=== PATIENT | female | born 1940 | race Caucasian/White ===

== ENCOUNTER 2018-02-11 09:10 | Day surgery (SDC) | payer MEDICARE, OTHER ==
[~2018-02-11] VITALS: Ht 160 cm; Wt 88.5 kg
[2018-02-11 09:53] VITALS: BP 132/82
[2018-02-11] MEDS ORDERED: LACTATED RINGERS 1,000 ML IV SCH ×2 (09:59→10:25)
[2018-02-11] MEDS ORDERED: GABA600T2 PO (10:03)
[2018-02-11] MEDS ORDERED: AMIT50TA PO (10:03)
[2018-02-11] MEDS ORDERED: IRON45TA6 PO (10:03)
[2018-02-11] MEDS ORDERED: VIT500LI PO (10:03)
[2018-02-11] MEDS ORDERED: TRAM50TA2 PO (10:03)
[2018-02-11] MEDS ORDERED: UBID300C PEG (10:03)
[2018-02-11] MEDS ORDERED: MAGN300C PO (10:03)
[2018-02-11] MEDS ORDERED: CHOL2000 PO (10:03)
[2018-02-11] MEDS ORDERED: FURO20TA3 PO (10:03)
[2018-02-11] MEDS ORDERED: LEVO100V PO (10:03)
[2018-02-11] MEDS ORDERED: MULT-709 PO (10:03)
[2018-02-11] MEDS ORDERED: DILT120C75 PO (10:03)
[2018-02-11] MEDS ORDERED: GABAPENTIN 300 MG CAPSULE PO ONE (10:30)
[2018-02-11] MEDS ORDERED: ACETAMINOPHEN 500 MG TABLET PO ONE (10:30)
[2018-02-11] MEDS ORDERED: FENTANYL PF 100 MCG/2ML ONE ×2 (10:33→12:22)
[2018-02-11] MEDS ORDERED: ONDANSETRON 2MG/ML, 2ML ONE (10:48)
[2018-02-11] MEDS ORDERED: CEFAZOLIN 1,000 MG ONE (10:48)
[2018-02-11] MEDS ORDERED: DEXAMETHASONE 4 MG/ML, 1ML ONE (10:48)
[2018-02-11] MEDS ORDERED: PROPOFOL 10 MG/ML, 20ML ONE (10:48)
[2018-02-11 10:54] LABS: BASOPHILS # (AUTO) 0.04 x10^3/uL (0-0.1); BASOPHILS % (AUTO) 1 % (0-1); EOSINOPHILS % (AUTO) 1 % (1-7); LYMPHOCYTES # (AUTO) 1.17 x10^3/uL (1-3.4); LYMPHOCYTES % (AUTO) 15 % (22-44); MD NO; MEAN CORPUSCULAR HEMOGLOBIN 26.7 pg (27.0-34.8); MEAN CORPUSCULAR HGB CONC 32.5 g/dL (32.4-35.8); MEAN CORPUSCULAR VOLUME 82.3 fL (80-100); MONOCYTES # (AUTO) 0.68 x10^3/uL (0.2-0.8); MONOCYTES % (AUTO) 9 % (2-9); NEUTROPHILS # (AUTO) 6.06 x10^3/uL (1.8-6.8); NEUTROPHILS % (AUTO) 75 % (42-75); PLATELET COUNT 443 x10^3/uL (130-400); RED BLOOD COUNT 3.85 x10^6/uL (3.82-5.3); RED CELL DISTRIBUTION WIDTH 17.9 % (9.6-15.2)
[2018-02-11] MEDS ORDERED: MIDAZOLAM 1 MG/ML, 2ML IV PRN (11:00)
[2018-02-11] MEDS ORDERED: LABETALOL 5MG/ML, 20ML IV PRN (11:00)
[2018-02-11] MEDS ORDERED: OXYcodone 5 MG/5 ML ORAL.SOL UDC PO PRN (11:00)
[2018-02-11] MEDS ORDERED: PROMETHAZINE 25 MG/ML, 1ML IV PRN (11:00)
[2018-02-11] MEDS ORDERED: ONDANSETRON 2MG/ML, 2ML IV PRN (11:00)
[2018-02-11] MEDS ORDERED: HYDROmorphone 1 MG/ML, 1ML IV PRN (11:00)
[2018-02-11] MEDS ORDERED: ALBUTEROL/IPRATROPIUM 2.5MG/0.5MG, 3 ML NPPB PRN (11:00)
[2018-02-11] MEDS ORDERED: LIDOCAINE/PF 1%, 30ML ONE (11:04)
[2018-02-11] MEDS ORDERED: BUPIVACAINE/PF 0.5% ONE (11:04)
[2018-02-11 11:05] LABS: ALANINE AMINOTRANSFERASE 14 U/L (12-78); ALBUMIN 2.7 g/dL (3.4-5.0); ANION GAP 9 mmol/L (5-15); CALCIUM 8.8 mg/dL (8.5-10.1); CHLORIDE 103 mmol/L (98-107); CREATININE 0.98 mg/dL (0.55-1.02)
[2018-02-11 11:07] LABS: ALKALINE PHOSPHATASE 157 U/L (45-117); BILIRUBIN,TOTAL 0.5 mg/dL (0.2-1.0); TOTAL PROTEIN 7.5 g/dL (6.4-8.2)
[2018-02-11] MEDS ORDERED: OXYcodone 5 MG/5 ML ORAL.SOL UDC ONE (12:23)
[2018-02-11] MEDS: FENTANYL PF 100 MCG/2ML IV PRN ×2 (12:25→12:35)
== END 2018-02-11 14:35 ==
LOC: OUT 09:10
PROVIDERS: ATTEND Orthopaedic Surgery Foot and Ankle Surgery
DX: T84.84XA Pain due to internal orthopedic prosthetic devices, implants and grafts, initial encounter (principal); M86.8X7 Other osteomyelitis, ankle and foot; D64.9 Anemia, unspecified; F17.210 Nicotine dependence, cigarettes, uncomplicated; M89.9 Disorder of bone, unspecified; I10 Essential (primary) hypertension; E11.9 Type 2 diabetes mellitus without complications; Y83.8 Other surgical procedures as the cause of abnormal reaction of the patient, or of later complication, without mention of misadventure at the time of the procedure; Y92.89 Other specified places as the place of occurrence of the external cause; Z87.39 Personal history of other diseases of the musculoskeletal system and connective tissue; Z72.89 Other problems related to lifestyle; Z85.3 Personal history of malignant neoplasm of breast; Z88.1 Allergy status to other antibiotic agents
CPT/HCPCS: 20680; 27640; 73600; 76000; 80053; 82962; 85025; 93005; J0690; J1100; J2405; J2704; J3010; J3490; J7120

== ENCOUNTER 2020-10-23 10:57 | Observation (INO) | payer MEDICARE, OTHER ==
[~2020-10-23] VITALS: Ht 152.4 cm; Wt 92.7 kg
[~2020-10-23 10:57] MED LIST: AMIT50TA PO; APIX5TAB PO; ASCO-96 PO; CHOL2000 PO; DILT120C83 PO; FURO20TA3 PO; GABA600T7 PO; IRON45TA6 PO; LEVO100V8 PO; MAGN300C PO; MAGN500C9 PO; MULT-709 PO; TRAM50TA2 PO; UBID300C PO; VIT500LI PO; ZINC50TA44 PO
[2020-10-23] MEDS ORDERED: LEVO100T5 PO (13:14)
[2020-10-23 13:23] VITALS: BP 143/72
[2020-10-23] MEDS: SODIUM CHLORIDE 0.9% 1,000 ML IV SCH ×2 (13:30→21:14)
[2020-10-23 13:48] LABS: BASOPHILS % (AUTO) 1 % (0-1); EOSINOPHILS % (AUTO) 2 % (1-7); LYMPHOCYTES % (AUTO) 19 % (22-44); MEAN CORPUSCULAR HGB CONC 33.5 g/dL (32.4-35.8); MEAN PLATELET VOLUME 8.5 fL (7.4-10.4); MONOCYTES % (AUTO) 8 % (2-9); NEUTROPHILS % (AUTO) 70 % (42-75); PLATELET COUNT 294 x10^3/uL (130-400); RED BLOOD COUNT 4.36 x10^6/uL (3.82-5.3); RED CELL DISTRIBUTION WIDTH 15.4 % (9.6-15.2)
[2020-10-23 13:55] LABS: ANION GAP 4 mmol/L (5-15); CALCIUM 9.4 mg/dL (8.5-10.1); CHLORIDE 103 mmol/L (98-107); CREATININE 1.01 mg/dL (0.55-1.02)
[2020-10-23 13:56] LABS: INTERNATIONAL NORMALIZED RATIO 1.05 (0.93-1.1); MD NO; PROTHROMBIN TIME 11.2 Seconds (9.6-11.5)
[2020-10-23] MEDS ORDERED: FENTANYL PF 100 MCG/2ML ONE (14:49)
[2020-10-23] MEDS ORDERED: MIDAZOLAM 1 MG/ML, 5ML ONE (14:49)
[2020-10-23] MEDS ORDERED: CEFAZOLIN 1,000 MG ONE (14:50)
[2020-10-23] MEDS ORDERED: LIDOCAINE 2%, 20ML ONE ×2 (14:50→16:03)
[2020-10-23] MEDS ORDERED: CEFAZOLIN PMX 1GM/50ML 50 ML ONE (14:50)
[2020-10-23] MEDS ORDERED: ONDANSETRON 2MG/ML, 2ML IV PRN (17:00)
[2020-10-23] MEDS ORDERED: HOLD MEDICATION MC PRN (17:00)
[2020-10-23] MEDS ORDERED: HYDROcodone/APAP 5/325 TABLET PO PRN (17:00)
[2020-10-23] MEDS ORDERED: ZOLPIDEM 5MG TABLET PO PRN (17:00)
[2020-10-23 18:44] VITALS: BP 133/70
[2020-10-23] MEDS ORDERED: AMITRIPTYLINE 50 MG TABLET PO SCH (21:00)
[2020-10-23] MEDS: GABAPENTIN 300 MG CAPSULE PO SCH (21:14)
[2020-10-23] MEDS: DILTIAZEM 120 MG CAP.ER.24H PO SCH (21:14)
[2020-10-23] MEDS: SODIUM CHLORIDE FLUSH 10ML SYR IVF SCH (21:15)
[2020-10-24] MEDS: CEFAZOLIN PMX 1GM/50ML 50 ML IVPB SCH ×2 (01:02→09:16)
[2020-10-24 01:04] VITALS: BP 128/66
[2020-10-24] MEDS: SODIUM CHLORIDE 0.9% 1,000 ML IV SCH (05:18)
[2020-10-24 08:00] VITALS: BP 130/90
[2020-10-24] MEDS ORDERED: MAGNESIUM OXIDE 400 MG TABLET PO SCH (09:00)
[2020-10-24] MEDS: SODIUM CHLORIDE FLUSH 10ML SYR IVF SCH (09:00)
[2020-10-24] MEDS ORDERED: FERROUS SULFATE 325 MG TABLET PO SCH (09:00)
[2020-10-24] MEDS ORDERED: LEVOTHYROXINE 100 MCG TABLET PO SCH (09:00)
[2020-10-24] MEDS: GABAPENTIN 300 MG CAPSULE PO SCH (09:00)
[2020-10-24] MEDS ORDERED: FUROSEMIDE 20 MG TABLET PO SCH (09:00)
[2020-10-24] MEDS: DILTIAZEM 120 MG CAP.ER.24H PO SCH (09:00)
[2020-10-24] MEDS ORDERED: ASCORBIC ACID 500 MG TABLET PO SCH (09:00)
== END 2020-10-24 12:50 | disposition home or self-care (01) ==
LOC: CACL 10:57 → 5SO 16:52 → DCLOUNGE 10-24 12:30
PROVIDERS: ADMIT Internal Medicine Cardiovascular Disease; ATTEND Internal Medicine Cardiovascular Disease
DX: I44.2 Atrioventricular block, complete (principal); I48.19 Other persistent atrial fibrillation; I13.0 Hypertensive heart and chronic kidney disease with heart failure and stage 1 through stage 4 chronic kidney disease, or unspecified chronic kidney disease; E11.22 Type 2 diabetes mellitus with diabetic chronic kidney disease; I50.9 Heart failure, unspecified; N18.30 Chronic kidney disease, stage 3 unspecified; E11.42 Type 2 diabetes mellitus with diabetic polyneuropathy; E78.2 Mixed hyperlipidemia; F17.200 Nicotine dependence, unspecified, uncomplicated; E66.9 Obesity, unspecified; Z79.899 Other long term (current) drug therapy; Z79.01 Long term (current) use of anticoagulants
CPT/HCPCS: 33207; 36005; 36415; 71045; 71046; 80048; 85025; 85610; 96365; 96366; 99156; 99157; C1779; C1786; C1892; G0378; J0690; J2250; J3010; J3490; Q9967